=== PATIENT | female | born 1995 | race Caucasian/White ===

== ENCOUNTER 2023-03-12 18:14 | Inpatient (IN) | payer MEDICAID ==
[~2023-03-12] VITALS: Ht 154.9 cm; Wt 105.2 kg
[2023-03-12 18:23] VITALS: BP_SYST 126
[2023-03-12 19:39] LABS: BILIRUBIN,URINE NEGATIVE (NEGATIVE); BLOOD, URINE NEGATIVE (NEGATIVE); CLARITY/URINE CLEAR (CLEAR); COLOR,URINE YELLOW (YELLOW); GLUCOSE,URINE NEGATIVE (NEGATIVE); KETONES,URINE NEGATIVE (NEGATIVE); LEUKOCYTE ESTERASE ,URINE NEGATIVE (NEGATIVE); NITRITE, URINE NEGATIVE (NEGATIVE); PH,URINE 5.5 (5.0-8.0); PROTEIN URINE NEGATIVE (NEGATIVE); UROBILINOGEN,URINE 0.2 (0.2-1.0)
[2023-03-12 19:40] LABS: ALBUMIN 3.7 g/dL (3.4-4.8); CALCIUM 9.3 mg/dL (8.4-11.0); CREATININE 1.17 mg/dL (0.55-1.30); TOTAL BILIRUBIN 0.3 mg/dL (0.0-1.0)
[2023-03-12 19:59] LABS: BASOPHILS # (AUTO) 0.1 K/uL (0.0-0.2); BASOPHILS % (AUTO) 0.6 % (0.0-2.0); EOSINOPHILS % (AUTO) 0.3 % (0.0-4.0); HEMATOCRIT 31.6 % (36-48); HEMOGLOBIN 10.7 g/dL (12.0-16.0); LYMPHOCYTES # (AUTO) 3.5 K/uL (1.0-5.5); LYMPHOCYTES % (AUTO) 23.6 % (20.5-51.5); MEAN CORPUSCULAR HEMOGLOBIN 28 pg (27-31); MEAN CORPUSCULAR HGB CONC 34 % (32-36); MEAN CORPUSCULAR VOLUME 83 fL (79.0-98.0); MONOCYTES # (AUTO) 0.6 K/uL (0.0-1.0); MONOCYTES % (AUTO) 4.4 % (1.7-9.3); NEUTROPHILS # (AUTO) 10.5 K/uL (1.8-7.7); PLATELET COUNT (AUTO) 259 K/uL (130-430); RED BLOOD CELL COUNT(AUTO) 3.82 MIL/uL (4.2-6.2); RED CELL DISTRIBUTION WIDTH 13.4 % (9.0-15.0); WHITE BLOOD COUNT (AUTO) 14.7 K/uL (4.8-10.8)
[2023-03-12 20:22] LABS: NEUTROPHILS % (AUTO) 71.1 % (40.0-70.0)
[2023-03-12] MEDS ORDERED: KETOROLAC TROMETHAMINE 30 MG VIAL IM ONE (20:30)
[2023-03-12] MEDS ORDERED: MAG HYDROX/AL HYDROX/SIMETH 30 ML, DICYCLOMINE HCL 20 MG, LIDOCAINE VISCOUS 2% 15ML (PO... PO ONE ×3 (21:30)
[2023-03-12] MEDS ORDERED: DICY10CA13 PO (22:30)
[2023-03-12] MEDS ORDERED: FAMO-132 PO (22:30)
[2023-03-12] MEDS ORDERED: ACET-2634 PO (22:30)
[2023-03-12] MEDS ORDERED: PERC10 PO (22:30)
[2023-03-12] MEDS ORDERED: THOR25 PO (23:04)
[2023-03-12] MEDS ORDERED: LEVO112T5 PO (23:04)
[2023-03-12] MEDS ORDERED: LOPE2CAP PO (23:04)
[2023-03-12] MEDS ORDERED: SERT100T PO (23:04)
[2023-03-12] MEDS ORDERED: ERGO500020 PO (23:07)
[2023-03-12] MEDS ORDERED: OMEG1CAP55 PO (23:07)
[2023-03-12] MEDS ORDERED: NICO4GUM PO (23:15)
[2023-03-12] MEDS ORDERED: CLOZ100T13 PO (23:15)
[2023-03-12] MEDS ORDERED: OXCA300T38 PO (23:15)
[2023-03-12] MEDS ORDERED: LITH600C PO (23:15)
[2023-03-12] MEDS ORDERED: CLON0.5T4 PO (23:15)
[2023-03-12] MEDS ORDERED: PROP20TA7 PO (23:15)
[2023-03-12] MEDS ORDERED: ONDANSETRON HCL 4 MG/2 ML VIAL IVP PRN (23:30)
[2023-03-12] MEDS ORDERED: ONDANSETRON HCL 4 MG/2 ML VIAL IVP ONE (23:30)
[2023-03-12] MEDS ORDERED: MORPHINE 2 MG/ML INJ. SYRINGE IVP PRN (23:30)
[2023-03-12] MEDS ORDERED: NICOTINE 7 MG/24 HR PATCH.TD24 TD SCH (23:30)
[2023-03-12] MEDS ORDERED: MORPHINE 4 MG INJ. 4 MG/ML VIAL IVP ONE (23:30)
[2023-03-12] MEDS ORDERED: LORazepam 2 MG/ML VIAL IVP ONE (23:30)
[2023-03-12] MEDS ORDERED: D5/0.45 NS 1,000 ML IV SCH (23:30)
[2023-03-13 00:44] VITALS: BP_SYST 117
[2023-03-13] MEDS: cefTRIAXone 1 GM IVPB PREMIX 50 ML IV SCH (01:33)
[2023-03-13 06:05] LABS: BASOPHILS # (AUTO) 0.1 K/uL (0.0-0.2); BASOPHILS % (AUTO) 0.5 % (0.0-2.0); EOSINOPHILS % (AUTO) 0.1 % (0.0-4.0); HEMATOCRIT 28.7 % (36-48); HEMOGLOBIN 9.8 g/dL (12.0-16.0); LYMPHOCYTES % (AUTO) 28.7 % (20.5-51.5); MEAN CORPUSCULAR HEMOGLOBIN 28 pg (27-31); MEAN CORPUSCULAR HGB CONC 34 % (32-36); MEAN CORPUSCULAR VOLUME 83 fL (79.0-98.0); MONOCYTES # (AUTO) 0.5 K/uL (0.0-1.0); NEUTROPHILS # (AUTO) 6.9 K/uL (1.8-7.7); NEUTROPHILS % (AUTO) 65.7 % (40.0-70.0); PLATELET COUNT (AUTO) 213 K/uL (130-430); RED BLOOD CELL COUNT(AUTO) 3.45 MIL/uL (4.2-6.2); RED CELL DISTRIBUTION WIDTH 13.3 % (9.0-15.0); WHITE BLOOD COUNT (AUTO) 10.5 K/uL (4.8-10.8)
[2023-03-13 06:41] LABS: ALBUMIN 3.2 g/dL (3.4-4.8); CALCIUM 8.1 mg/dL (8.4-11.0); CREATININE 1.02 mg/dL (0.55-1.30); TOTAL BILIRUBIN 0.3 mg/dL (0.0-1.0)
[2023-03-13 08:00] VITALS: BP_SYST 115
[2023-03-13 11:51] VITALS: BP_SYST 103
[2023-03-13] MEDS ORDERED: POTASSIUM CHLORIDE 20 MEQ/PKT PACKET PO ONE (12:30)
[2023-03-13] MEDS: NACL 0.9% 1,000 ML IV SCH (12:31)
[2023-03-13] MEDS ORDERED: NALOXONE HCL 0.4 MG/ML AMP (NARCAN) IVP PRN (13:45)
[2023-03-13] MEDS: MORPHINE 2 MG/ML INJ. SYRINGE IVP PRN ×2 (15:44→21:06)
[2023-03-13] MEDS: PROPRANOLOL HCL 10 MG TABLET (INDERAL) PO SCH ×2 (16:16→21:37)
[2023-03-13] MEDS: clonazePAM 0.5 MG TABLET PO PRN ×2 (16:17→23:40)
[2023-03-13 16:47] VITALS: BP_SYST 123
[2023-03-13 20:00] VITALS: BP_SYST 106
[2023-03-13] MEDS: LITHIUM CARBONATE 300 MG TABLET.SA PO SCH (21:36)
[2023-03-13] MEDS: OXcarbazepine 150 MG TABLET(TRILEPTAL) PO SCH (21:37)
[2023-03-13] MEDS: CLOZAPINE 100MG TABLET PO SCH (21:38)
[2023-03-13] MEDS: THORAZINE (chlorproMAZINE) 25 MG TAB PO PRN (22:24)
[2023-03-14] MEDS ORDERED: cefTRIAXone 1 GM IVPB PREMIX 50 ML IV ONE (00:20)
[2023-03-14] MEDS: cefTRIAXone 1 GM IVPB PREMIX 50 ML IV SCH ×2 (00:26→23:30)
[2023-03-14 01:37] VITALS: BP_SYST 115
[2023-03-14] MEDS: NACL 0.9% 1,000 ML IV SCH ×2 (06:26→21:20)
[2023-03-14] MEDS: LEVOTHYROXINE SODIUM 0.112 MG TABLET PO SCH (06:26)
[2023-03-14 08:04] LABS: BASOPHILS # (AUTO) 0.1 K/uL (0.0-0.2); BASOPHILS % (AUTO) 0.5 % (0.0-2.0); HEMATOCRIT 30.4 % (36-48); HEMOGLOBIN 10.2 g/dL (12.0-16.0); LYMPHOCYTES # (AUTO) 2.8 K/uL (1.0-5.5); LYMPHOCYTES % (AUTO) 28.4 % (20.5-51.5); MEAN CORPUSCULAR HEMOGLOBIN 28 pg (27-31); MEAN CORPUSCULAR HGB CONC 34 % (32-36); MEAN CORPUSCULAR VOLUME 84 fL (79.0-98.0); MONOCYTES # (AUTO) 0.5 K/uL (0.0-1.0); MONOCYTES % (AUTO) 4.8 % (1.7-9.3); NEUTROPHILS # (AUTO) 6.6 K/uL (1.8-7.7); NEUTROPHILS % (AUTO) 66.3 % (40.0-70.0); PLATELET COUNT (AUTO) 250 K/uL (130-430); RED BLOOD CELL COUNT(AUTO) 3.62 MIL/uL (4.2-6.2); RED CELL DISTRIBUTION WIDTH 14.2 % (9.0-15.0); WHITE BLOOD COUNT (AUTO) 9.9 K/uL (4.8-10.8)
[2023-03-14] MEDS ORDERED: CLOZAPINE 100MG TABLET PO SCH (09:00)
[2023-03-14] MEDS: OMEGA-3/DHA/EPA/FISH OIL 1 GM CAPSULE PO SCH (10:25)
[2023-03-14] MEDS: SERTRALINE HCL 50 MG TABLET PO SCH (10:27)
[2023-03-14] MEDS: OXcarbazepine 150 MG TABLET(TRILEPTAL) PO SCH ×2 (10:27→20:22)
[2023-03-14] MEDS: PROPRANOLOL HCL 10 MG TABLET (INDERAL) PO SCH ×3 (10:27→20:21)
[2023-03-14] MEDS: LITHIUM CARBONATE 300 MG TABLET.SA PO SCH ×2 (10:28→20:22)
[2023-03-14] MEDS: MORPHINE 2 MG/ML INJ. SYRINGE IVP PRN ×2 (10:54→15:35)
[2023-03-14 11:17] VITALS: BP_SYST 99
[2023-03-14] MEDS ORDERED: BISACODYL 5 MG TABLET.DR (DULCOLAX) PO ONE (12:15)
[2023-03-14] MEDS ORDERED: GOLYTELY / COLYTE SOLUTION 4 LITERS PO ONE (12:15)
[2023-03-14] MEDS ORDERED: MINERAL OIL 30 ML UDC PO ONE (12:15)
[2023-03-14] MEDS: clonazePAM 0.5 MG TABLET PO PRN ×2 (12:45→20:32)
[2023-03-14] MEDS ORDERED: GADOTERATE MEGLUMINE 7.5 MMOL/15 ML VIAL IV ONE (13:56)
[2023-03-14] MEDS ORDERED: GADOBENATE DIMEGLUMINE 529 MG/ML, 5 ML VIAL IV ONE (13:59)
[2023-03-14 16:12] VITALS: BP_SYST 108
[2023-03-14] MEDS ORDERED: TEMAZEPAM 7.5 MG CAPSULE PO PRN (18:15)
[2023-03-14 20:00] VITALS: BP_SYST 141
[2023-03-14] MEDS: CLOZAPINE 100MG TABLET PO SCH (20:23)
[2023-03-14] MEDS: THORAZINE (chlorproMAZINE) 25 MG TAB PO PRN ×2 (20:24→22:11)
[2023-03-14] MEDS: metroNIDAZOLE 500 mg/NS 100 ML IV SCH (20:37)
[2023-03-14] MEDS ORDERED: cefTRIAXone 1 GM VIAL ONE (21:57)
[2023-03-15 00:45] VITALS: BP_SYST 116
[2023-03-15 04:00] VITALS: BP_SYST 141
[2023-03-15] MEDS: LEVOTHYROXINE SODIUM 0.112 MG TABLET PO SCH (06:24)
[2023-03-15] MEDS: metroNIDAZOLE 500 mg/NS 100 ML IV SCH (06:25)
[2023-03-15 08:26] VITALS: BP_SYST 109
[2023-03-15] MEDS: PROPRANOLOL HCL 10 MG TABLET (INDERAL) PO SCH (08:50)
[2023-03-15] MEDS: LITHIUM CARBONATE 300 MG TABLET.SA PO SCH (08:50)
[2023-03-15] MEDS: OXcarbazepine 150 MG TABLET(TRILEPTAL) PO SCH (08:51)
[2023-03-15] MEDS: SERTRALINE HCL 50 MG TABLET PO SCH (08:51)
[2023-03-15] MEDS: OMEGA-3/DHA/EPA/FISH OIL 1 GM CAPSULE PO SCH (08:51)
[2023-03-15] MEDS: NACL 0.9% 1,000 ML IV SCH (08:55)
[2023-03-15] MEDS ORDERED: METR-154 PO (11:03)
[2023-03-15 11:29] VITALS: BP_SYST 114
[2023-03-15] MEDS: clonazePAM 0.5 MG TABLET PO PRN (11:57)
[2023-03-15 12:55] VITALS: BP_SYST 114
[2023-03-15 13:07] LABS: ANTI NUCLEAR AB WITH REFLEX Negative (Negative)
[2023-03-15] MEDS ORDERED: THORAZINE (chlorproMAZINE) 25 MG TAB PO SCH (21:00)
[2023-03-16 08:06] LABS: ALPHA-1-ANTITRYPSIN, S 153 mg/dL (100-188)
[2023-03-21 03:06] LABS: HEPATITIS A AB, IgM Negative (Negative); HEPATITIS B CORE AB, IgM Negative (Negative); HEPATITIS B SURFACE AG Negative (Negative)
== END 2023-03-15 14:40 | disposition home or self-care (01) | DRG 253 ==
LOC: SED 18:14 → SMU 23:19
PROVIDERS: ADMIT Internal Medicine; ATTEND Internal Medicine
DX: K66.1 Hemoperitoneum (principal); K74.60 Unspecified cirrhosis of liver; F25.9 Schizoaffective disorder, unspecified; N83.209 Unspecified ovarian cyst, unspecified side; K59.00 Constipation, unspecified; D72.829 Elevated white blood cell count, unspecified; E66.9 Obesity, unspecified; R16.1 Splenomegaly, not elsewhere classified; K58.9 Irritable bowel syndrome, unspecified; K76.0 Fatty (change of) liver, not elsewhere classified; F31.9 Bipolar disorder, unspecified; Z68.41 Body mass index [BMI] 40.0-44.9, adult; Z88.8 Allergy status to other drugs, medicaments and biological substances; Z72.0 Tobacco use
CPT/HCPCS: 36415; 74183; 76376; 76700-TC; 80053; 80074; 81003; 82103; 82105; 82390; 83516; 83690; 85025; 86038; 96372; 96374; 96375; 99285; A9575; A9577; J0696; J1885; J2001; J2060; J2270; J2405; J3490; Q0161